=== PATIENT | female | born 1950 | race Caucasian/White ===

== ENCOUNTER 2019-04-30 18:07 | Emergency (ER) | payer MEDICAID, OTHER ==
[~2019-04-30] VITALS: Ht 157.5 cm; Wt 59.1 kg
[~2019-04-30 18:07] MED LIST: LEVO50TA4 PO; OLAN10TA3 PO
[2019-04-30 18:59] VITALS: BP 130/65
[2019-04-30 19:21] LABS: BASOPHILS % (AUTO) 1.2 % (0.0-2.0); EOSINOPHILS % (AUTO) 2.8 % (1.0-6.0); HEMATOCRIT 34.7 % (36-46); HEMOGLOBIN 11.6 g/dL (12.0-16.0); LYMPHOCYTES # (AUTO) 1.8 K/uL (1.0-4.8); LYMPHOCYTES % (AUTO) 36.9 % (22.0-44.0); MEAN CORPUSCULAR HEMOGLOBIN 29.2 pg (26.0-34.0); MEAN CORPUSCULAR HGB CONC 33.4 G/dL (31.0-37.0); MEAN CORPUSCULAR VOLUME 87 fL (80-100); MONOCYTES # (AUTO) 0.3 K/uL (0.1-1.0); MONOCYTES % (AUTO) 7.3 % (2.0-9.0); NEUTROPHILS # (AUTO) 2.5 K/uL (1.8-7.7); NEUTROPHILS % (AUTO) 51.8 % (40.0-70.0); PLATELET COUNT (AUTO) 201 K/uL (150-450); RED BLOOD CELL COUNT(AUTO) 3.98 MIL/uL (4.00-5.20)
[2019-04-30 19:36] LABS: ANION GAP 11 mmol/L (8-16); CALCIUM, TOTAL 8.9 mg/dL (8.8-10.5); CARBON DIOXIDE 26 mmol/L (22-29); CHLORIDE 104 mmol/L (98-107); CREATININE 0.69 mg/dL (0.60-1.30); GLOMERULAR FILTR. RATE CALC > 60 mL/min (>60); GLUCOSE,RANDOM 83 mg/dL (70-110); POTASSIUM 3.4 mmol/L (3.5-5.1); SODIUM SERUM 141 mmol/L (136-145); UREA NITROGEN, BLOOD 16 mg/dL (7-18)
[2019-04-30 19:38] LABS: AMPHET/METH SCREEN,URINE POSITIVE (NEGATIVE); BARBITURATE SCREEN, URINE NEGATIVE (NEGATIVE); BENZODIAZEPINES SCREEN,URINE NEGATIVE (NEGATIVE); CANNABINOID SCREEN,URINE NEGATIVE (NEGATIVE); COCAINE SCREEN,URINE NEGATIVE (NEGATIVE); METHADONE SCREEN, URINE NEGATIVE (NEGATIVE); OPIATE SCREEN,URINE NEGATIVE (NEGATIVE)
[2019-04-30 19:41] LABS: PHENCYCLIDINE SCREEN,URINE NEGATIVE (NEGATIVE)
[2019-04-30 19:42] LABS: ALANINE AMINOTRANSFERASE 18 U/L (12-78); ALBUMIN 3.8 g/dL (3.4-5.0); ALKALINE PHOSPHATASE 77 U/L (46-116); ASPARTATE AMINOTRANSFERASE 23 U/L (15-37); BILIRUBIN,TOTAL 0.8 mg/dL (0.1-1.0); TOTAL PROTEIN, SERUM 6.6 g/dL (6.4-8.2)
== END 2019-04-30 20:34 | disposition home or self-care (01) ==
LOC: EMS 18:09
DX: F20.9 Schizophrenia, unspecified (principal); F17.210 Nicotine dependence, cigarettes, uncomplicated; E03.9 Hypothyroidism, unspecified
CPT/HCPCS: 36415; 80053; 80307; 85025; 99285; G0480

== ENCOUNTER 2019-12-01 09:49 | Inpatient (IN) | payer MEDICAID, OTHER ==
[~2019-12-01] VITALS: Ht 157.5 cm; Wt 47.9 kg
[2019-12-01 10:35] LABS: BASOPHILS % (AUTO) 0.8 % (0.0-2.0); EOSINOPHILS % (AUTO) 2.1 % (1.0-6.0); HEMATOCRIT 40.4 % (36-46); HEMOGLOBIN 13.3 g/dL (12.0-16.0); LYMPHOCYTES # (AUTO) 1.9 K/uL (1.0-4.8); LYMPHOCYTES % (AUTO) 29.5 % (22.0-44.0); MEAN CORPUSCULAR HEMOGLOBIN 28.4 pg (26.0-34.0); MEAN CORPUSCULAR HGB CONC 32.9 G/dL (31.0-37.0); MEAN CORPUSCULAR VOLUME 87 fL (80-100); MONOCYTES # (AUTO) 0.4 K/uL (0.1-1.0); MONOCYTES % (AUTO) 5.8 % (2.0-9.0); NEUTROPHILS # (AUTO) 3.9 K/uL (1.8-7.7); NEUTROPHILS % (AUTO) 61.8 % (40.0-70.0); PLATELET COUNT (AUTO) 284 K/uL (150-450); RED BLOOD CELL COUNT(AUTO) 4.67 MIL/uL (4.00-5.20); RED CELL DISTRIBUTION WIDTH 14.8 % (11.5-14.5)
[2019-12-01 10:42] LABS: ANION GAP 8 mmol/L (8-16); CALCIUM, TOTAL 8.9 mg/dL (8.8-10.5); CARBON DIOXIDE 29 mmol/L (22-29); CHLORIDE 103 mmol/L (98-107); CREATININE 0.74 mg/dL (0.60-1.30); GLOMERULAR FILTR. RATE CALC > 60 mL/min (>60); GLUCOSE,RANDOM 106 mg/dL (70-110); POTASSIUM 4.4 mmol/L (3.5-5.1); SODIUM SERUM 140 mmol/L (136-145); UREA NITROGEN, BLOOD 7 mg/dL (7-18)
[2019-12-01 10:49] LABS: ALANINE AMINOTRANSFERASE 30 U/L (12-78); ALBUMIN 4.4 g/dL (3.4-5.0); ALKALINE PHOSPHATASE 91 U/L (46-116); ASPARTATE AMINOTRANSFERASE 25 U/L (15-37); BILIRUBIN,TOTAL 0.5 mg/dL (0.1-1.0); TOTAL PROTEIN, SERUM 7.4 g/dL (6.4-8.2)
[2019-12-01 11:01] LABS: AMPHET/METH SCREEN,URINE NEGATIVE (NEGATIVE); BARBITURATE SCREEN, URINE NEGATIVE (NEGATIVE); BENZODIAZEPINES SCREEN,URINE NEGATIVE (NEGATIVE); CANNABINOID SCREEN,URINE NEGATIVE (NEGATIVE); COCAINE SCREEN,URINE NEGATIVE (NEGATIVE); METHADONE SCREEN, URINE NEGATIVE (NEGATIVE); OPIATE SCREEN,URINE NEGATIVE (NEGATIVE); PHENCYCLIDINE SCREEN,URINE NEGATIVE (NEGATIVE)
[2019-12-01] MEDS ORDERED: OLANZapine 5 MG TABLET PO ONE (11:45)
[2019-12-01] MEDS ORDERED: LORazepam 1 MG TABLET PO ONE (11:45)
[2019-12-01] MEDS ORDERED: LORazepam 2 MG TABLET PO PRN (13:15)
[2019-12-01] MEDS ORDERED: ZOLPIDEM TARTRATE 10 MG TABLET PO PRN (13:15)
[2019-12-01 16:08] VITALS: BP 130/68
[2019-12-01] MEDS: DIVALPROEX SODIUM 500 MG DR TABLET PO SCH (17:00)
[2019-12-01] MEDS ORDERED: OLANZapine 10 MG TABLET PO SCH (21:00)
[2019-12-01] MEDS: OLANZapine 10 MG TABLET PO SCH (21:00)
[2019-12-02] MEDS: HALOPERIDOL 5 MG TABLET PO PRN (09:59)
[2019-12-02] MEDS: DIVALPROEX SODIUM 500 MG DR TABLET PO SCH ×3 (09:59→17:00)
[2019-12-02] MEDS ORDERED: LOPERAMIDE HCL 2 MG CAPSULE PO PRN (11:00)
[2019-12-02] MEDS ORDERED: CloNIDine HCL 0.1 MG TABLET PO PRN (11:00)
[2019-12-02] MEDS ORDERED: OMEPRAZOLE 20 MG CAPSULE PO PRN (11:00)
[2019-12-02] MEDS ORDERED: PETROLATUM,WHITE 28 GM JELLY TP PRN (11:00)
[2019-12-02] MEDS ORDERED: ONDANSETRON HCL 4 MG TABLET PO PRN (11:00)
[2019-12-02] MEDS ORDERED: IBUPROFEN 600 MG TABLET PO PRN (11:00)
[2019-12-02] MEDS ORDERED: ACETAMINOPHEN 325 MG TABLET PO PRN (11:00)
[2019-12-02] MEDS ORDERED: MAG HYDROX/AL HYDROX/SIMETH ES 30 ML SUSPENSION UDCUP PO PRN (11:00)
[2019-12-02] MEDS ORDERED: DOCUSATE SODIUM 100 MG CAPSULE PO PRN (11:00)
[2019-12-02] MEDS ORDERED: ALBUTEROL SULFATE HFA 90 MCG/PUFF 8 GM INHALER IH PRN (11:00)
[2019-12-02] MEDS ORDERED: BENZOCAINE/MENTHOL LOZENGE MM PRN (11:00)
[2019-12-02] MEDS ORDERED: BACITRACIN 28.4 GM OINTMENT TP PRN (11:00)
[2019-12-02] MEDS ORDERED: MAGNESIUM HYDROXIDE SUSPENSION 30 ML UDCUP PO PRN (11:00)
[2019-12-02 16:36] VITALS: BP 134/78
[2019-12-02 17:53] LABS: APPEARANCE,URINE CLOUDY (CLEAR); BILIRUBIN,URINE NEGATIVE (NEGATIVE); GLUCOSE, URINE (UA) NEGATIVE (NEGATIVE); KETONES,URINE NEGATIVE (NEGATIVE); LEUKOCYTE ESTERASE ,URINE SMALL (NEGATIVE); NITRATE,URINE POSITIVE (NEGATIVE); OCCULT BLOOD,URINE NEGATIVE (NEGATIVE); PROTEIN,URINE NEGATIVE (NEGATIVE); UROBILINOGEN,URINE 0.2 mg/dL (<=1.0)
[2019-12-02 18:02] LABS: BACTERIA,URINE Many /HPF (None Seen); RBC,URINE None Seen /HPF (0-2)
[2019-12-02 18:04] LABS: SQUAMOUS EPITHELIAL CELL,UR Moderate /LPF (None Seen)
[2019-12-02 18:06] LABS: YEAST,URINE Rare /HPF (None Seen)
[2019-12-02] MEDS: OLANZapine 10 MG TABLET PO SCH ×2 (20:46→21:21)
[2019-12-02] MEDS: CEPHALEXIN MONOHYDRATE 500 MG CAPSULE PO SCH (21:11)
[2019-12-03] MEDS: LEVOTHYROXINE SODIUM 25 MCG TABLET PO SCH (06:51)
[2019-12-03] MEDS: CEPHALEXIN MONOHYDRATE 500 MG CAPSULE PO SCH ×2 (08:51→16:23)
[2019-12-03] MEDS: DIVALPROEX SODIUM 500 MG DR TABLET PO SCH ×2 (08:54→16:23)
[2019-12-03 17:00] VITALS: BP 152/67
[2019-12-03] MEDS: OLANZapine 10 MG TABLET PO SCH (20:00)
[2019-12-04] MEDS: LEVOTHYROXINE SODIUM 25 MCG TABLET PO SCH (06:54)
[2019-12-04] MEDS: DIVALPROEX SODIUM 500 MG DR TABLET PO SCH ×2 (09:10→16:41)
[2019-12-04] MEDS: CEPHALEXIN MONOHYDRATE 500 MG CAPSULE PO SCH ×2 (09:10→16:40)
[2019-12-04 09:24] VITALS: BP 129/98
[2019-12-04 17:07] VITALS: BP 125/59
[2019-12-04] MEDS: OLANZapine 10 MG TABLET PO SCH (20:10)
[2019-12-05] MEDS: LEVOTHYROXINE SODIUM 25 MCG TABLET PO SCH (06:49)
[2019-12-05 08:33] VITALS: BP 121/69
[2019-12-05] MEDS: CEPHALEXIN MONOHYDRATE 500 MG CAPSULE PO SCH ×2 (08:40→16:12)
[2019-12-05] MEDS: DIVALPROEX SODIUM 500 MG DR TABLET PO SCH ×2 (08:40→16:12)
[2019-12-05] MEDS: HALOPERIDOL 5 MG TABLET PO PRN (08:40)
[2019-12-05 16:41] VITALS: BP 123/71
[2019-12-05] MEDS: OLANZapine 10 MG TABLET PO SCH (20:38)
[2019-12-06] MEDS: LEVOTHYROXINE SODIUM 25 MCG TABLET PO SCH (06:53)
[2019-12-06 08:00] VITALS: BP 123/64
[2019-12-06] MEDS: HALOPERIDOL 5 MG TABLET PO PRN (08:02)
[2019-12-06] MEDS: CEPHALEXIN MONOHYDRATE 500 MG CAPSULE PO SCH ×2 (08:02→16:01)
[2019-12-06] MEDS: DIVALPROEX SODIUM 500 MG DR TABLET PO SCH ×2 (08:02→16:01)
[2019-12-06] MEDS ORDERED: MULTIVITAMINS WITH MINERALS, THERAPEUTIC TABLET PO SCH (09:00)
[2019-12-06] MEDS ORDERED: DIVA-78 PO (11:11)
[2019-12-06] MEDS ORDERED: CEPH500 PO (12:32)
[2019-12-06] MEDS ORDERED: LEVO25TA9 PO (12:33)
[2019-12-06] MEDS ORDERED: MULT-248 PO (12:33)
[2019-12-06 16:16] VITALS: BP 122/77
== END 2019-12-06 17:15 | disposition home or self-care (01) | DRG 885 ==
LOC: EMS 09:53 → 3EC 14:17
PROVIDERS: ADMIT Psychiatry & Neurology Psychiatry; ATTEND Psychiatry & Neurology Psychiatry
DX: F25.9 Schizoaffective disorder, unspecified (principal); E03.9 Hypothyroidism, unspecified; G47.00 Insomnia, unspecified; K59.00 Constipation, unspecified; F41.9 Anxiety disorder, unspecified; F17.210 Nicotine dependence, cigarettes, uncomplicated; F19.10 Other psychoactive substance abuse, uncomplicated; Z71.6 Tobacco abuse counseling; Z71.51 Drug abuse counseling and surveillance of drug abuser
CPT/HCPCS: 87086; G0480

== ENCOUNTER 2020-01-08 13:30 | Inpatient (IN) | payer MEDICAID, OTHER ==
[~2020-01-08] VITALS: Ht 157.5 cm; Wt 51.6 kg
[~2020-01-08 13:30] MED LIST changes: +CEPH500 PO; +DIVA-78 PO; +LEVO25TA9 PO; -LEVO50TA4 PO; +MULT-248 PO
[2020-01-08 17:46] LABS: FREE T4 (FREE THYROXINE) 1.53 ng/dL (0.76-1.46); THYROID STIMULATING HORMONE 1.73 uIU/mL (0.36-3.74)
[2020-01-08 17:57] LABS: VALPROIC ACID < 3 mcg/mL (50-100)
[2020-01-08] MEDS ORDERED: ZOLPIDEM TARTRATE 10 MG TABLET PO PRN (18:30)
[2020-01-08 18:52] LABS: ANION GAP 14 mmol/L (8-16); CALCIUM, TOTAL 8.8 mg/dL (8.8-10.5); CARBON DIOXIDE 23 mmol/L (22-29); CHLORIDE 105 mmol/L (98-107); CREATININE 0.75 mg/dL (0.60-1.30); GLOMERULAR FILTR. RATE CALC > 60 mL/min (>60); GLUCOSE,RANDOM 96 mg/dL (70-110); POTASSIUM 4.3 mmol/L (3.5-5.1); SODIUM SERUM 142 mmol/L (136-145); UREA NITROGEN, BLOOD 13 mg/dL (7-18)
[2020-01-08 18:58] LABS: ALANINE AMINOTRANSFERASE 23 U/L (12-78); ALBUMIN 4.1 g/dL (3.4-5.0); ALKALINE PHOSPHATASE 80 U/L (46-116); ASPARTATE AMINOTRANSFERASE 23 U/L (15-37); BILIRUBIN,TOTAL 0.4 mg/dL (0.1-1.0)
[2020-01-08 18:58] LABS: BASOPHILS % (AUTO) 0.8 % (0.0-2.0); EOSINOPHILS % (AUTO) 1.8 % (1.0-6.0); HEMATOCRIT 37.1 % (36-46); HEMOGLOBIN 12.2 g/dL (12.0-16.0); LYMPHOCYTES # (AUTO) 2.1 K/uL (1.0-4.8); LYMPHOCYTES % (AUTO) 33.2 % (22.0-44.0); MEAN CORPUSCULAR HEMOGLOBIN 28.9 pg (26.0-34.0); MEAN CORPUSCULAR HGB CONC 32.9 G/dL (31.0-37.0); MEAN CORPUSCULAR VOLUME 88 fL (80-100); MONOCYTES # (AUTO) 0.3 K/uL (0.1-1.0); NEUTROPHILS # (AUTO) 3.7 K/uL (1.8-7.7); NEUTROPHILS % (AUTO) 59.2 % (40.0-70.0); PLATELET COUNT (AUTO) 209 K/uL (150-450); RED BLOOD CELL COUNT(AUTO) 4.22 MIL/uL (4.00-5.20); RED CELL DISTRIBUTION WIDTH 14.8 % (11.5-14.5)
[2020-01-08] MEDS: DIVALPROEX SODIUM 500 MG DR TABLET PO SCH (21:00)
[2020-01-08] MEDS: OLANZapine 10 MG TABLET PO SCH (21:00)
[2020-01-08 21:20] VITALS: BP 144/69
[2020-01-09] MEDS: LEVOTHYROXINE SODIUM 25 MCG TABLET PO SCH (06:48)
[2020-01-09] MEDS ORDERED: MAGNESIUM HYDROXIDE SUSPENSION 30 ML UDCUP PO PRN (07:15)
[2020-01-09] MEDS ORDERED: MAG HYDROX/AL HYDROX/SIMETH ES 30 ML SUSPENSION UDCUP PO PRN (07:15)
[2020-01-09] MEDS ORDERED: DOCUSATE SODIUM 100 MG CAPSULE PO PRN (07:15)
[2020-01-09] MEDS ORDERED: ACETAMINOPHEN 325 MG TABLET PO PRN (07:15)
[2020-01-09] MEDS ORDERED: IBUPROFEN 600 MG TABLET PO PRN (07:15)
[2020-01-09] MEDS ORDERED: BENZOCAINE/MENTHOL LOZENGE MM PRN (07:15)
[2020-01-09] MEDS ORDERED: PETROLATUM,WHITE 28 GM JELLY TP PRN (07:15)
[2020-01-09] MEDS ORDERED: LOPERAMIDE HCL 2 MG CAPSULE PO PRN (07:15)
[2020-01-09] MEDS ORDERED: ONDANSETRON HCL 4 MG TABLET PO PRN (07:15)
[2020-01-09] MEDS ORDERED: CloNIDine HCL 0.1 MG TABLET PO PRN (07:15)
[2020-01-09] MEDS ORDERED: BACITRACIN 28.4 GM OINTMENT TP PRN (07:15)
[2020-01-09] MEDS ORDERED: ALBUTEROL SULFATE HFA 90 MCG/PUFF 8 GM INHALER IH PRN (07:15)
[2020-01-09] MEDS: HALOPERIDOL 5 MG TABLET PO PRN ×2 (08:31→12:47)
[2020-01-09] MEDS: OLANZapine 10 MG TABLET PO SCH ×2 (08:31→21:53)
[2020-01-09] MEDS: OMEPRAZOLE 20 MG CAPSULE PO PRN (08:32)
[2020-01-09] MEDS: DIVALPROEX SODIUM 500 MG DR TABLET PO SCH (08:32)
[2020-01-09 09:06] VITALS: BP 152/92
[2020-01-09] MEDS: LORazepam 2 MG TABLET PO PRN (12:47)
[2020-01-09] MEDS: GABAPENTIN 300 MG CAPSULE PO SCH (16:36)
[2020-01-09 16:55] VITALS: BP 145/90
[2020-01-10] MEDS: LEVOTHYROXINE SODIUM 25 MCG TABLET PO SCH (06:44)
[2020-01-10] MEDS: GABAPENTIN 300 MG CAPSULE PO SCH ×2 (09:00→16:43)
[2020-01-10] MEDS: MULTIVITAMINS WITH MINERALS, THERAPEUTIC TABLET PO SCH (09:00)
[2020-01-10] MEDS: OLANZapine 10 MG TABLET PO SCH ×2 (09:09→20:24)
[2020-01-10 17:24] VITALS: BP 128/63
[2020-01-11] MEDS: LEVOTHYROXINE SODIUM 25 MCG TABLET PO SCH (06:50)
[2020-01-11 08:00] VITALS: BP 152/57
[2020-01-11] MEDS: OMEPRAZOLE 20 MG CAPSULE PO PRN (09:02)
[2020-01-11] MEDS: GABAPENTIN 300 MG CAPSULE PO SCH ×2 (09:02→16:50)
[2020-01-11] MEDS: OLANZapine 10 MG TABLET PO SCH ×2 (09:02→20:55)
[2020-01-11] MEDS: MULTIVITAMINS WITH MINERALS, THERAPEUTIC TABLET PO SCH (09:02)
[2020-01-11] MEDS: HALOPERIDOL 5 MG TABLET PO PRN (09:05)
[2020-01-11 18:59] VITALS: BP 127/78
[2020-01-12] MEDS: LEVOTHYROXINE SODIUM 25 MCG TABLET PO SCH (06:32)
[2020-01-12 08:00] VITALS: BP 127/81
[2020-01-12] MEDS: GABAPENTIN 300 MG CAPSULE PO SCH ×2 (08:00→15:55)
[2020-01-12] MEDS: MULTIVITAMINS WITH MINERALS, THERAPEUTIC TABLET PO SCH (08:00)
[2020-01-12] MEDS: LORazepam 2 MG TABLET PO PRN (08:00)
[2020-01-12] MEDS: OLANZapine 10 MG TABLET PO SCH ×2 (08:00→20:26)
[2020-01-12 16:00] VITALS: BP 124/78
[2020-01-13] MEDS: LEVOTHYROXINE SODIUM 25 MCG TABLET PO SCH (06:12)
[2020-01-13 08:00] VITALS: BP 108/84
[2020-01-13] MEDS: GABAPENTIN 300 MG CAPSULE PO SCH ×2 (08:31→15:54)
[2020-01-13] MEDS: OLANZapine 10 MG TABLET PO SCH ×2 (08:31→20:04)
[2020-01-13] MEDS: MULTIVITAMINS WITH MINERALS, THERAPEUTIC TABLET PO SCH (08:32)
[2020-01-13 16:41] VITALS: BP 125/82
[2020-01-14] MEDS: LEVOTHYROXINE SODIUM 25 MCG TABLET PO SCH (06:37)
[2020-01-14 08:00] VITALS: BP 109/61
[2020-01-14] MEDS: MULTIVITAMINS WITH MINERALS, THERAPEUTIC TABLET PO SCH (08:40)
[2020-01-14] MEDS: GABAPENTIN 300 MG CAPSULE PO SCH ×2 (08:40→16:43)
[2020-01-14] MEDS: OLANZapine 10 MG TABLET PO SCH ×2 (08:40→20:25)
[2020-01-14 17:54] VITALS: BP 109/60
[2020-01-15] MEDS: LEVOTHYROXINE SODIUM 25 MCG TABLET PO SCH (06:43)
[2020-01-15 08:00] VITALS: BP 108/80
[2020-01-15] MEDS: OLANZapine 10 MG TABLET PO SCH ×2 (08:23→20:38)
[2020-01-15] MEDS: LORazepam 0.5 MG TABLET PO PRN (08:23)
[2020-01-15] MEDS: GABAPENTIN 300 MG CAPSULE PO SCH ×2 (08:23→16:30)
[2020-01-15] MEDS: MULTIVITAMINS WITH MINERALS, THERAPEUTIC TABLET PO SCH (08:32)
[2020-01-15 09:43] LABS: BASOPHILS % (AUTO) 0.9 % (0.0-2.0); HEMOGLOBIN 13.2 g/dL (12.0-16.0); LYMPHOCYTES # (AUTO) 1.7 K/uL (1.0-4.8); LYMPHOCYTES % (AUTO) 31.4 % (22.0-44.0); MEAN CORPUSCULAR HEMOGLOBIN 28.9 pg (26.0-34.0); MEAN CORPUSCULAR HGB CONC 32.9 G/dL (31.0-37.0); MEAN CORPUSCULAR VOLUME 88 fL (80-100); MONOCYTES # (AUTO) 0.5 K/uL (0.1-1.0); MONOCYTES % (AUTO) 8.7 % (2.0-9.0); NEUTROPHILS # (AUTO) 3.2 K/uL (1.8-7.7); PLATELET COUNT (AUTO) 254 K/uL (150-450); RED BLOOD CELL COUNT(AUTO) 4.56 MIL/uL (4.00-5.20); RED CELL DISTRIBUTION WIDTH 14.6 % (11.5-14.5)
[2020-01-15 10:10] LABS: ANION GAP 9 mmol/L (8-16); CALCIUM, TOTAL 8.6 mg/dL (8.8-10.5); CARBON DIOXIDE 29 mmol/L (22-29); CHLORIDE 101 mmol/L (98-107); CREATININE 0.82 mg/dL (0.60-1.30); GLOMERULAR FILTR. RATE CALC > 60 mL/min (>60); GLUCOSE,RANDOM 75 mg/dL (70-110); POTASSIUM 4.4 mmol/L (3.5-5.1); SODIUM SERUM 139 mmol/L (136-145); THYROID STIMULATING HORMONE 2.82 uIU/mL (0.36-3.74); UREA NITROGEN, BLOOD 17 mg/dL (7-18)
[2020-01-15 12:01] LABS: APPEARANCE,URINE CLOUDY (CLEAR); GLUCOSE, URINE (UA) NEGATIVE (NEGATIVE); KETONES,URINE TRACE mg/dL (NEGATIVE); LEUKOCYTE ESTERASE ,URINE NEGATIVE (NEGATIVE); NITRATE,URINE NEGATIVE (NEGATIVE); OCCULT BLOOD,URINE NEGATIVE (NEGATIVE); PROTEIN,URINE NEGATIVE (NEGATIVE); UROBILINOGEN,URINE 0.2 mg/dL (<=1.0)
[2020-01-15 12:04] LABS: BILIRUBIN,URINE PRELIM. POSITIVE (NEGATIVE)
[2020-01-15 12:20] LABS: BACTERIA,URINE None Seen /HPF (None Seen); RBC,URINE None Seen /HPF (0-2); SQUAMOUS EPITHELIAL CELL,UR Moderate /LPF (None Seen); WBC,URINE None Seen /HPF (0-5); YEAST,URINE Few /HPF (None Seen)
[2020-01-15 16:47] VITALS: BP 105/63
[2020-01-16] MEDS: LEVOTHYROXINE SODIUM 25 MCG TABLET PO SCH (06:42)
[2020-01-16] MEDS: HALOPERIDOL 5 MG TABLET PO PRN (07:33)
[2020-01-16] MEDS: LORazepam 0.5 MG TABLET PO PRN (07:33)
[2020-01-16] MEDS: MULTIVITAMINS WITH MINERALS, THERAPEUTIC TABLET PO SCH (07:33)
[2020-01-16] MEDS: GABAPENTIN 300 MG CAPSULE PO SCH ×2 (07:33→16:41)
[2020-01-16] MEDS: OLANZapine 10 MG TABLET PO SCH ×2 (07:33→20:27)
[2020-01-16 09:12] VITALS: BP 146/63
[2020-01-16 16:49] VITALS: BP 114/63
[2020-01-17] MEDS: LEVOTHYROXINE SODIUM 25 MCG TABLET PO SCH (06:27)
[2020-01-17] MEDS: HALOPERIDOL 5 MG TABLET PO PRN (08:41)
[2020-01-17] MEDS: OLANZapine 10 MG TABLET PO SCH ×2 (08:41→20:06)
[2020-01-17] MEDS: LORazepam 0.5 MG TABLET PO PRN (08:41)
[2020-01-17] MEDS: GABAPENTIN 300 MG CAPSULE PO SCH ×2 (08:41→15:59)
[2020-01-17] MEDS: MULTIVITAMINS WITH MINERALS, THERAPEUTIC TABLET PO SCH (08:41)
[2020-01-17 09:28] VITALS: BP 100/54
[2020-01-17 16:45] VITALS: BP 112/64
[2020-01-18] MEDS: LEVOTHYROXINE SODIUM 25 MCG TABLET PO SCH (06:45)
[2020-01-18 08:00] VITALS: BP 111/52
[2020-01-18] MEDS: LORazepam 0.5 MG TABLET PO PRN (08:48)
[2020-01-18] MEDS: OLANZapine 10 MG TABLET PO SCH ×2 (08:48→20:14)
[2020-01-18] MEDS: GABAPENTIN 300 MG CAPSULE PO SCH ×2 (08:48→16:16)
[2020-01-18] MEDS: MULTIVITAMINS WITH MINERALS, THERAPEUTIC TABLET PO SCH (09:00)
[2020-01-18 16:48] VITALS: BP 112/60
[2020-01-19] MEDS: LEVOTHYROXINE SODIUM 25 MCG TABLET PO SCH (06:48)
[2020-01-19 08:00] VITALS: BP 100/57
[2020-01-19] MEDS: OLANZapine 10 MG TABLET PO SCH ×2 (08:13→20:48)
[2020-01-19] MEDS: GABAPENTIN 300 MG CAPSULE PO SCH ×2 (08:13→16:19)
[2020-01-19] MEDS: LORazepam 0.5 MG TABLET PO PRN (08:13)
[2020-01-19] MEDS: MULTIVITAMINS WITH MINERALS, THERAPEUTIC TABLET PO SCH ×2 (08:13→09:00)
[2020-01-19] MEDS: HALOPERIDOL 5 MG TABLET PO PRN (08:14)
[2020-01-20] MEDS: LEVOTHYROXINE SODIUM 25 MCG TABLET PO SCH (06:59)
[2020-01-20 08:00] VITALS: BP 103/63
[2020-01-20] MEDS: GABAPENTIN 300 MG CAPSULE PO SCH ×2 (08:43→16:32)
[2020-01-20] MEDS: OLANZapine 10 MG TABLET PO SCH ×2 (08:43→20:39)
[2020-01-20] MEDS: HALOPERIDOL 5 MG TABLET PO PRN (08:43)
[2020-01-20] MEDS: LORazepam 0.5 MG TABLET PO PRN (08:43)
[2020-01-20] MEDS: MULTIVITAMINS WITH MINERALS, THERAPEUTIC TABLET PO SCH (09:00)
[2020-01-21] MEDS: LEVOTHYROXINE SODIUM 25 MCG TABLET PO SCH (06:52)
[2020-01-21 08:00] VITALS: BP 108/68
[2020-01-21] MEDS: OLANZapine 10 MG TABLET PO SCH ×2 (08:27→20:41)
[2020-01-21] MEDS: GABAPENTIN 300 MG CAPSULE PO SCH ×2 (08:27→16:33)
[2020-01-21] MEDS: MULTIVITAMINS WITH MINERALS, THERAPEUTIC TABLET PO SCH (08:35)
[2020-01-21 16:33] VITALS: BP 100/67
[2020-01-22 06:05] VITALS: BP 114/61
[2020-01-22] MEDS: LEVOTHYROXINE SODIUM 25 MCG TABLET PO SCH (06:46)
[2020-01-22 08:00] VITALS: BP 116/80
[2020-01-22] MEDS: OLANZapine 10 MG TABLET PO SCH ×2 (08:24→19:59)
[2020-01-22] MEDS: GABAPENTIN 300 MG CAPSULE PO SCH ×2 (08:24→16:51)
[2020-01-22 16:20] VITALS: BP 106/78
[2020-01-23 00:25] VITALS: BP 133/69
[2020-01-23] MEDS: LEVOTHYROXINE SODIUM 25 MCG TABLET PO SCH (06:56)
[2020-01-23 08:00] VITALS: BP 122/72
[2020-01-23] MEDS: LORazepam 0.5 MG TABLET PO PRN (08:41)
[2020-01-23] MEDS: GABAPENTIN 300 MG CAPSULE PO SCH ×2 (08:41→16:35)
[2020-01-23] MEDS: OLANZapine 10 MG TABLET PO SCH ×2 (08:41→19:56)
[2020-01-23 16:53] VITALS: BP 129/69
[2020-01-23 20:03] VITALS: BP 127/68
[2020-01-24] MEDS: LEVOTHYROXINE SODIUM 25 MCG TABLET PO SCH (06:54)
[2020-01-24 08:00] VITALS: BP 118/67
[2020-01-24] MEDS: OLANZapine 10 MG TABLET PO SCH ×2 (08:08→20:45)
[2020-01-24] MEDS: GABAPENTIN 300 MG CAPSULE PO SCH ×2 (08:08→16:08)
[2020-01-24 17:08] VITALS: BP 119/69
[2020-01-25] MEDS: LEVOTHYROXINE SODIUM 25 MCG TABLET PO SCH (06:54)
[2020-01-25 08:00] VITALS: BP 101/59
[2020-01-25] MEDS: GABAPENTIN 300 MG CAPSULE PO SCH ×2 (08:43→15:52)
[2020-01-25] MEDS: OLANZapine 10 MG TABLET PO SCH ×2 (08:43→20:11)
[2020-01-25 16:05] VITALS: BP 125/75
[2020-01-26] MEDS: LEVOTHYROXINE SODIUM 25 MCG TABLET PO SCH (06:55)
[2020-01-26 08:00] VITALS: BP 116/66
[2020-01-26] MEDS: OLANZapine 10 MG TABLET PO SCH ×2 (08:17→20:21)
[2020-01-26] MEDS: GABAPENTIN 300 MG CAPSULE PO SCH ×2 (08:17→16:29)
[2020-01-26 16:00] VITALS: BP 126/73
[2020-01-27] MEDS: LEVOTHYROXINE SODIUM 25 MCG TABLET PO SCH (06:32)
[2020-01-27] MEDS: OLANZapine 10 MG TABLET PO SCH ×2 (08:32→20:21)
[2020-01-27] MEDS: GABAPENTIN 300 MG CAPSULE PO SCH ×2 (08:32→17:11)
[2020-01-27 10:09] VITALS: BP 116/63
[2020-01-27 16:08] VITALS: BP 102/65
[2020-01-28] MEDS: LEVOTHYROXINE SODIUM 25 MCG TABLET PO SCH (06:34)
[2020-01-28 08:00] VITALS: BP 116/71
[2020-01-28] MEDS: OLANZapine 10 MG TABLET PO SCH ×2 (08:05→20:28)
[2020-01-28] MEDS: GABAPENTIN 300 MG CAPSULE PO SCH ×2 (08:05→16:05)
[2020-01-28 16:32] VITALS: BP 151/64
[2020-01-28 20:26] LABS: GLUCOMETER DEV NAME(LOC) 3E.C; GLUCOSE,POINT OF CARE 115 MG/DL (70-110)
[2020-01-29] MEDS: LEVOTHYROXINE SODIUM 25 MCG TABLET PO SCH (06:46)
[2020-01-29 08:00] VITALS: BP 110/57
[2020-01-29] MEDS: OLANZapine 10 MG TABLET PO SCH ×2 (08:05→20:18)
[2020-01-29] MEDS: DIVALPROEX SODIUM 500 MG DR TABLET PO SCH ×2 (08:05→16:12)
[2020-01-29] MEDS: GABAPENTIN 300 MG CAPSULE PO SCH ×2 (08:05→16:12)
[2020-01-29 09:23] LABS: HEMATOCRIT 35.2 % (36-46); HEMOGLOBIN 11.8 g/dL (12.0-16.0); MEAN CORPUSCULAR HEMOGLOBIN 29.4 pg (26.0-34.0); MEAN CORPUSCULAR HGB CONC 33.4 G/dL (31.0-37.0); MEAN CORPUSCULAR VOLUME 88 fL (80-100); PLATELET COUNT (AUTO) 256 K/uL (150-450); RED BLOOD CELL COUNT(AUTO) 4.01 MIL/uL (4.00-5.20); RED CELL DISTRIBUTION WIDTH 14.9 % (11.5-14.5)
[2020-01-29 09:37] LABS: % IRON SATURATION 30.4 % (22-44); IRON, SERUM 90 mcg/dL (50-175); TOTAL IRON BINDING CAPACITY 296 mcg/dL (250-450)
[2020-01-29 09:46] LABS: ANION GAP 9 mmol/L (8-16); CALCIUM, TOTAL 8.5 mg/dL (8.8-10.5); CARBON DIOXIDE 30 mmol/L (22-29); CHLORIDE 104 mmol/L (98-107); CHOL/HDL RATIO 2.8 (3.9-5.7); CHOLESTEROL 179 mg/dL (131-200); CREATININE 0.75 mg/dL (0.60-1.30); GLOMERULAR FILTR. RATE CALC > 60 mL/min (>60); GLUCOSE,RANDOM 93 mg/dL (70-110); HDL CHOLESTEROL 64 mg/dL (40-60); LDL CHOL (CALC.) 84 mg/dL (0-130); PHOSPHORUS 4.9 mg/dL (2.5-4.9); POTASSIUM 4.3 mmol/L (3.5-5.1); SODIUM SERUM 143 mmol/L (136-145); THYROID STIMULATING HORMONE 4.57 uIU/mL (0.36-3.74); TRIGLYCERIDES 155 mg/dL (15-150); UREA NITROGEN, BLOOD 19 mg/dL (7-18)
[2020-01-29 09:56] LABS: BAND NEUTROPHILS % (MANUAL) 3 % (0-5); EOSINOPHILS % (MANUAL) 4 % (1-6); LYMPHOCYTES % (MANUAL) 33 % (22-44); MONOCYTES % (MANUAL) 5 % (2-9); SEGMENTED NEUTROPHILS % 55 % (40-70)
[2020-01-29 16:05] VITALS: BP 124/53
[2020-01-30] MEDS: LEVOTHYROXINE SODIUM 50 MCG TABLET PO SCH (06:44)
[2020-01-30] MEDS: MULTIVITAMINS WITH IRON TABLET PO SCH (08:00)
[2020-01-30] MEDS: OLANZapine 10 MG TABLET PO SCH ×2 (08:29→20:35)
[2020-01-30] MEDS: GABAPENTIN 300 MG CAPSULE PO SCH ×2 (08:29→15:57)
[2020-01-30] MEDS: DIVALPROEX SODIUM 500 MG DR TABLET PO SCH ×2 (08:39→15:57)
[2020-01-30] MEDS: OMEGA-3/DHA/EPA/FISH OIL 1,000 MG CAPSULE PO SCH (08:39)
[2020-01-30] MEDS: MAGNESIUM OXIDE 400 MG TABLET PO SCH ×2 (08:40→15:56)
[2020-01-30 09:51] VITALS: BP 110/57
[2020-01-30 12:30] VITALS: BP 102/59
[2020-01-30 17:04] VITALS: BP 120/62
[2020-01-31] MEDS: LEVOTHYROXINE SODIUM 50 MCG TABLET PO SCH (06:14)
[2020-01-31 08:00] VITALS: BP 136/66
[2020-01-31] MEDS: MULTIVITAMINS WITH IRON TABLET PO SCH (08:00)
[2020-01-31] MEDS: OMEGA-3/DHA/EPA/FISH OIL 1,000 MG CAPSULE PO SCH (09:00)
[2020-01-31] MEDS: DIVALPROEX SODIUM 500 MG DR TABLET PO SCH ×2 (09:00→15:56)
[2020-01-31] MEDS: MAGNESIUM OXIDE 400 MG TABLET PO SCH ×2 (09:00→15:57)
[2020-01-31] MEDS: OLANZapine 10 MG TABLET PO SCH ×2 (09:07→20:27)
[2020-01-31] MEDS: GABAPENTIN 300 MG CAPSULE PO SCH ×2 (09:08→15:56)
[2020-01-31 16:05] VITALS: BP 119/74
[2020-02-01] MEDS: LEVOTHYROXINE SODIUM 50 MCG TABLET PO SCH (06:45)
[2020-02-01] MEDS: MULTIVITAMINS WITH IRON TABLET PO SCH (08:00)
[2020-02-01] MEDS: MAGNESIUM OXIDE 400 MG TABLET PO SCH ×2 (09:00→15:59)
[2020-02-01] MEDS: OMEGA-3/DHA/EPA/FISH OIL 1,000 MG CAPSULE PO SCH (09:00)
[2020-02-01 09:27] VITALS: BP 103/61
[2020-02-01] MEDS: OLANZapine 10 MG TABLET PO SCH (11:06)
[2020-02-01] MEDS: DIVALPROEX SODIUM 500 MG DR TABLET PO SCH ×2 (11:07→15:59)
[2020-02-01] MEDS: GABAPENTIN 300 MG CAPSULE PO SCH ×2 (11:07→15:59)
[2020-02-01] MEDS ORDERED: OMEG-12 PO (11:15)
[2020-02-01] MEDS ORDERED: MAGN400T25 PO (11:15)
[2020-02-01] MEDS ORDERED: MVITFE PO (11:15)
[2020-02-01] MEDS ORDERED: GABA-1181 PO (11:15)
== END 2020-02-01 17:00 | disposition home or self-care (01) | DRG 885 ==
LOC: EMS 13:30 → 3EC 18:25
PROVIDERS: ADMIT Psychiatry & Neurology Psychiatry; ATTEND Psychiatry & Neurology Psychiatry
DX: F25.1 Schizoaffective disorder, depressive type (principal); R45.851 Suicidal ideations; E03.9 Hypothyroidism, unspecified; Z91.14 Patient's other noncompliance with medication regimen; Z91.5 Personal history of self-harm; K59.00 Constipation, unspecified; Z03.818 Encounter for observation for suspected exposure to other biological agents ruled out; G47.00 Insomnia, unspecified; F41.9 Anxiety disorder, unspecified; F19.10 Other psychoactive substance abuse, uncomplicated
CPT/HCPCS: 83540; 83550; 83735; 84100; 84439; 84443; 85007; 87081

== ENCOUNTER 2024-03-01 10:18 | Inpatient (IN) | payer MEDICAID, OTHER ==
[~2024-03-01] VITALS: Ht 152.4 cm; Wt 47.6 kg
[~2024-03-01 10:18] MED LIST changes: -CEPH500 PO; +DIVA-112 PO; -DIVA-78 PO; +GABA-1181 PO; +MAGN400T25 PO; -MULT-248 PO; +MVITFE PO; -OLAN10TA3 PO; +OLAN10TA74 PO; +OMEG-12 PO
[2024-03-01] MEDS ORDERED: OLAN20TA82 PO (10:31)
[2024-03-01 11:00] LABS: COVID AG,FIA SOURCE NASAL SWAB
[2024-03-01] MEDS ORDERED: ZOLPIDEM TARTRATE 10 MG TABLET PO PRN (11:00)
[2024-03-01] MEDS ORDERED: LORazepam 2 MG TABLET PO PRN (11:00)
[2024-03-01 11:03] LABS: BASOPHILS % (AUTO) 1.1 % (0.0-2.0); EOSINOPHILS % (AUTO) 2.2 % (1.0-6.0); HEMATOCRIT 38.1 % (36-46); HEMOGLOBIN 12.5 g/dL (12.0-16.0); LYMPHOCYTES # (AUTO) 1.9 K/uL (1.0-4.8); LYMPHOCYTES % (AUTO) 40.4 % (22.0-44.0); MEAN CORPUSCULAR HEMOGLOBIN 28.4 pg (26.0-34.0); MEAN CORPUSCULAR HGB CONC 32.8 G/dL (31.0-37.0); MEAN CORPUSCULAR VOLUME 86 fL (80-100); MONOCYTES # (AUTO) 0.3 K/uL (0.1-1.0); MONOCYTES % (AUTO) 5.6 % (2.0-9.0); NEUTROPHILS # (AUTO) 2.4 K/uL (1.8-7.7); NEUTROPHILS % (AUTO) 50.7 % (40.0-70.0); PLATELET COUNT (AUTO) 244 K/uL (150-450); RED BLOOD CELL COUNT(AUTO) 4.41 MIL/uL (4.00-5.20); RED CELL DISTRIBUTION WIDTH 15.2 % (11.5-14.5); WHITE BLOOD COUNT (AUTO) 4.7 K/uL (4.5-11.0)
[2024-03-01 11:03] LABS: APPEARANCE,URINE TURBID (CLEAR); BILIRUBIN,URINE NEGATIVE (NEGATIVE); COLOR,URINE YELLOW (YELLOW); GLUCOSE, URINE (UA) NEGATIVE (NEGATIVE); KETONES,URINE NEGATIVE (NEGATIVE); LEUKOCYTE ESTERASE ,URINE LARGE (NEGATIVE); NITRATE,URINE POSITIVE (NEGATIVE); OCCULT BLOOD,URINE SMALL (NEGATIVE); PH,URINE 5.5 (5.0-8.0); PROTEIN,URINE 30-70 mg/dL (NEGATIVE); UROBILINOGEN,URINE <=1.0 mg/dL (<=1.0)
[2024-03-01 11:05] LABS: PH,URINE DRUG SCREEN 5.5 (5.0-8.0)
[2024-03-01 11:10] LABS: ALCOHOL, URINE DRUG SCREEN NEGATIVE (NEGATIVE); AMPHET/METH SCREEN,URINE NEGATIVE (NEGATIVE); BARBITURATE SCREEN, URINE NEGATIVE (NEGATIVE); BENZODIAZEPINES SCREEN,URINE NEGATIVE (NEGATIVE); CANNABINOID SCREEN,URINE NEGATIVE (NEGATIVE); COCAINE SCREEN,URINE NEGATIVE (NEGATIVE); METHADONE SCREEN, URINE NEGATIVE (NEGATIVE); OPIATE SCREEN,URINE NEGATIVE (NEGATIVE); PHENCYCLIDINE SCREEN,URINE NEGATIVE (NEGATIVE)
[2024-03-01 11:11] LABS: ANION GAP 9 mmol/L (8-16); CARBON DIOXIDE 29 mmol/L (22-29); CHLORIDE 102 mmol/L (98-107); CREATININE 0.77 mg/dL (0.60-1.30); GLOMERULAR FILTR. RATE CALC > 60 mL/min (>60); GLUCOSE,RANDOM 94 mg/dL (70-110); POTASSIUM 3.9 mmol/L (3.5-5.1); SODIUM SERUM 140 mmol/L (136-145); UREA NITROGEN, BLOOD 11 mg/dL (7-18)
[2024-03-01 11:29] LABS: BACTERIA,URINE Many /HPF (None Seen); SQUAMOUS EPITHELIAL CELL,UR Many /LPF (None Seen); WBC,URINE >100 /HPF (0-5)
[2024-03-01 11:42] LABS: ALCOHOL, BLOOD (SERUM) < 3 mg/dL (0-10)
[2024-03-01] MEDS: OLANZapine 5 MG RAPDIS TABLET PO PRN (11:52)
[2024-03-01 12:14] LABS: SARS-COV2 (COVID) ANTIGEN,FIA Negative (Negative)
[2024-03-01] MEDS: CefTRIAXone SODIUM 1 GM/VIAL IM ONE (14:21)
[2024-03-01] MEDS: LIDOCAINE/PF 1% 2 ML VIAL IM ONE (14:21)
[2024-03-01 22:46] VITALS: BP 110/48; PULSE 60; RESP 17; TEMP 97.4
[2024-03-01 22:48] VITALS: BP 110/48; PULSE 60; RESP 17; TEMP 97.4; O2SAT 99
[2024-03-02] MEDS ORDERED: PNEUMOCOCCAL VACCINE POLYVALENT 0.5 ML SYRINGE [PPSV23] IM. ONE (06:15)
[2024-03-02 08:48] VITALS: BP 99/59; PULSE 63; RESP 16; TEMP 96.8; O2SAT 99
[2024-03-02] MEDS ORDERED: MAG HYDROX/ALUMINUM HYD/SIMETH ES 30 ML SUSPENSION UDCUP PO PRN ×2 (10:15→10:45)
[2024-03-02] MEDS ORDERED: ONDANSETRON HCL 4 MG TABLET PO PRN (10:15)
[2024-03-02] MEDS ORDERED: ACETAMINOPHEN 325 MG TABLET PO PRN ×2 (10:15→10:45)
[2024-03-02] MEDS ORDERED: MAGNESIUM HYDROXIDE SUSPENSION 30 ML UDCUP PO PRN ×2 (10:15→10:45)
[2024-03-02] MEDS ORDERED: CloNIDine HCL 0.1 MG TABLET PO PRN (10:15)
[2024-03-02] MEDS ORDERED: PETROLATUM,WHITE 28 GM JELLY TP PRN (10:15)
[2024-03-02] MEDS ORDERED: DOCUSATE SODIUM 100 MG CAPSULE PO PRN (10:15)
[2024-03-02] MEDS ORDERED: OMEPRAZOLE 20 MG CAPSULE PO PRN (10:15)
[2024-03-02] MEDS ORDERED: BENZOCAINE/MENTHOL LOZENGE PO PRN (10:15)
[2024-03-02] MEDS ORDERED: IBUPROFEN 600 MG TABLET PO PRN (10:15)
[2024-03-02] MEDS ORDERED: ALBUTEROL SULFATE HFA 90 MCG/PUFF 8 GM INHALER IH PRN (10:15)
[2024-03-02] MEDS ORDERED: BACITRACIN 28 GM OINTMENT TP PRN (10:15)
[2024-03-02] MEDS ORDERED: PROMETHAZINE HCL 25 MG TABLET PO PRN (10:45)
[2024-03-02] MEDS ORDERED: GuaiFENesin/D-METHORPHAN [SUGAR-FREE] 200-20MG/10 ML SYRUP UDCUP PO PRN (10:45)
[2024-03-02] MEDS ORDERED: TUBERCULIN, PURIFIED PROTEIN DERIVATIVE 5 TU/0.1 ML SYRINGE ID ONE (10:45)
[2024-03-02] MEDS ORDERED: LOPERAMIDE HCL 2 MG CAPSULE PO PRN (10:45)
[2024-03-02] MEDS: CEPHALEXIN MONOHYDRATE 500 MG CAPSULE PO SCH (16:07)
[2024-03-02] MEDS: HydrOXYzine PAMOATE 50 MG CAPSULE PO PRN (16:13)
[2024-03-02] MEDS: GABAPENTIN 300 MG CAPSULE PO SCH (16:14)
[2024-03-02] MEDS ORDERED: CEPHALEXIN MONOHYDRATE 500 MG CAPSULE PO SCH (17:00)
[2024-03-02] MEDS: THIAMINE 100 MG TABLET PO SCH (17:00)
[2024-03-02 20:00] VITALS: BP 119/52; PULSE 60; RESP 17; TEMP 97.6; O2SAT 97
[2024-03-02] MEDS: DIVALPROEX SODIUM 500 MG ER TABLET PO SCH (21:00)
[2024-03-02] MEDS: MELATONIN 5 MG TABLET PO SCH (21:00)
[2024-03-02] MEDS: OLANZapine 10 MG RAPDIS TABLET PO SCH (21:13)
[2024-03-03] MEDS: LEVOTHYROXINE SODIUM 25 MCG TABLET PO SCH (06:37)
[2024-03-03 08:53] VITALS: BP 131/60; PULSE 68; RESP 17; TEMP 98.2; O2SAT 96
[2024-03-03] MEDS: MULTIVITAMINS WITH MINERALS, THERAPEUTIC TABLET PO SCH (08:57)
[2024-03-03] MEDS: FOLIC ACID 1 MG TABLET PO SCH (08:57)
[2024-03-03] MEDS: DIVALPROEX SODIUM 500 MG DR TABLET PO SCH (17:00)
[2024-03-03 20:40] VITALS: BP 114/70; PULSE 67; RESP 18; TEMP 97.2; O2SAT 98
[2024-03-03] MEDS: ETHYL ALCOHOL 62% ANTISEPTIC NASAL SANITIZER 0.6 ML AMPUL NASAL SCH (21:00)
[2024-03-03] MEDS: OLANZapine 10 MG TABLET PO SCH (21:00)
[2024-03-03] MEDS: CHLORHEXIDINE GLUCONATE 2% TOWELETTE [2'S/6'S] TP SCH (22:03)
[2024-03-04 08:41] VITALS: BP 121/62; PULSE 68; RESP 18; TEMP 97.5; O2SAT 97
[2024-03-04 20:18] VITALS: BP 113/66; PULSE 72; RESP 17; TEMP 97.8; O2SAT 99
[2024-03-05 08:35] VITALS: BP 111/60; PULSE 72; RESP 17; TEMP 98; O2SAT 99
[2024-03-05 20:34] VITALS: BP 115/68; PULSE 76; RESP 18; TEMP 97.6; O2SAT 97
[2024-03-06 08:24] VITALS: BP 105/64; PULSE 63; RESP 18; TEMP 96.5; O2SAT 95
[2024-03-06] MEDS ORDERED: MULT-1390 PO (13:20)
[2024-03-06] MEDS ORDERED: LEVO50 PO (13:20)
[2024-03-06 20:36] VITALS: BP 117/72; PULSE 76; RESP 19; TEMP 97.2; O2SAT 96
[2024-03-07] MEDS: LEVOTHYROXINE SODIUM 50 MCG TABLET PO SCH (06:46)
[2024-03-07 09:16] VITALS: BP 117/60; PULSE 71; RESP 17; TEMP 96.1; O2SAT 100
[2024-03-07 20:38] VITALS: RESP 16; TEMP 97.3
[2024-03-08 09:08] VITALS: BP 101/61; PULSE 68; RESP 17; TEMP 97.4; O2SAT 94
[2024-03-08] MEDS: LOPERAMIDE HCL 2 MG CAPSULE PO PRN (17:00)
[2024-03-08 22:00] VITALS: RESP 16; TEMP 98.2; O2SAT 98
[2024-03-09 08:55] VITALS: BP 114/69; PULSE 67; RESP 15; TEMP 97.4; O2SAT 97
[2024-03-09 20:14] VITALS: BP 117/65; PULSE 66; RESP 18; TEMP 98
[2024-03-10 08:22] VITALS: BP 122/60; PULSE 70; RESP 18; TEMP 98.9; O2SAT 97
[2024-03-10] MEDS ORDERED: DIVA-153 PO (14:50)
== END 2024-03-10 17:13 | disposition home or self-care (01) | DRG 750 ==
LOC: EMS 11:57 → B2S 18:35 → B3A 03-09 22:37
PROVIDERS: ADMIT Psychiatry & Neurology Psychiatry; ATTEND Psychiatry & Neurology Psychiatry
PROC: GZHZZZZ Group Psychotherapy (ICD-10-PCS; principal; 2024-03-02)
PROC: GZ58ZZZ Individual Psychotherapy, Cognitive-Behavioral (ICD-10-PCS; 2024-03-02)
PROC: GZ56ZZZ Individual Psychotherapy, Supportive (ICD-10-PCS; 2024-03-02)
DX: F20.0 Paranoid schizophrenia (principal); Z91.148 Patient's other noncompliance with medication regimen for other reason; R45.851 Suicidal ideations; E03.9 Hypothyroidism, unspecified; F31.9 Bipolar disorder, unspecified; N39.0 Urinary tract infection, site not specified; K59.00 Constipation, unspecified; K21.9 Gastro-esophageal reflux disease without esophagitis; Z20.822 Contact with and (suspected) exposure to COVID-19; G47.00 Insomnia, unspecified; F41.9 Anxiety disorder, unspecified; F19.10 Other psychoactive substance abuse, uncomplicated; F17.210 Nicotine dependence, cigarettes, uncomplicated; F41.0 Panic disorder [episodic paroxysmal anxiety]; F60.0 Paranoid personality disorder; J44.9 Chronic obstructive pulmonary disease, unspecified; Z55.9 Problems related to education and literacy, unspecified; Z59.811 Housing instability, housed, with risk of homelessness; Z63.9 Problem related to primary support group, unspecified; Z65.3 Problems related to other legal circumstances; Z87.440 Personal history of urinary (tract) infections; Z91.199 Patient's noncompliance with other medical treatment and regimen due to unspecified reason; Z71.51 Drug abuse counseling and surveillance of drug abuser
CPT/HCPCS: 80048; 80164; 80307; 81001; 85025; 86592; 87086; 87186; 99285; G0480; J0696; J3490